=== PATIENT | female | born 1975 | race Caucasian/White ===

== ENCOUNTER 2019-01-01 10:33 | Emergency (ER) | payer MEDICAID ==
[~2019-01-01] VITALS: Ht 160 cm; Wt 63.5 kg
[2019-01-01 10:39] VITALS: Ht 160 cm; Wt 63.5 kg
[2019-01-01 13:46] VITALS: BP 141/73
== END 2019-01-01 13:46 | disposition home or self-care (01) ==
LOC: ED 10:33
DX: J98.01 Acute bronchospasm (principal); I45.10 Unspecified right bundle-branch block
CPT/HCPCS: 82962; J2930; J7613; J7644